=== PATIENT | female | born 2000 | race Native Hawaiian/Other Pacific Islander ===

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

== ENCOUNTER 2023-08-04 11:32 | Emergency (ER) | payer MEDICAID ==
[~2023-08-04] VITALS: Ht 152.4 cm; Wt 72.7 kg
[~2023-08-04 11:32] MED LIST changes: +MOTRIN 800800 MG/TAB PO; +PRENATAL TABLET PO
[2023-08-04 11:44] VITALS: TEMP 98.4
[2023-08-04] MEDS ORDERED: Amoxicillin/Clavulanate K+ 875/125 MG TAB PO ONE (15:45)
[2023-08-04] MEDS ORDERED: AMOXICILLIN 8751 TAB PO (15:58)
[2023-08-04 16:25] VITALS: BP 112/77; PULSE 68
== END 2023-08-04 16:25 | disposition home or self-care (01) ==
LOC: COL.ER 11:32
DX: S71.151A Open bite, right thigh, initial encounter (principal); S71.111A Laceration without foreign body, right thigh, initial encounter; W54.0XXA Bitten by dog, initial encounter